=== PATIENT | female | born 1940 | race Caucasian/White ===

== ENCOUNTER → 2016-07-27 | Outpatient (CLI) | payer OTHER ==
[~2016-07-27] MED LIST: PERCOCET 5-3251 EACH PO
== END ==
LOC: RAD 10:16
DX: Z12.31 Encounter for screening mammogram for malignant neoplasm of breast (principal)

== ENCOUNTER → 2016-12-24 | Outpatient (CLI) | payer OTHER ==
[~2016-12-24] VITALS: Ht 147.3 cm; Wt 72.6 kg
[~2016-12-24] MED LIST changes: +ALIGN4 MG PO; +ASPIR 8181 M1 PO; +BIOTIN5000 MCG PO; +DILTIAZEM 24HR120 M2 PO; +IBUPROFEN 200200 M1 PO; +LIPITOR40 MG PO; +MULTIVITAMINS PO; +NEXIUM40 MG PO; +PROAIR HFA8.5 GM INH; +SYNTHROID75 MCG PO; +TYLENOL325 MG PO; +VITAMIN B-12500 MCG PO; +VITAMIN D-32000 UNIT PO; +ZANTAC 150MG T150 MG PO; +[UNRECOGNIZED DRUG - OTHER] TOP
--- NOTE | ~2016-12-24 | S ---
[facility] [place] [address] SURGICAL PATH RPT PROCEDURE Name: KEENAN HODGES Room #: REG KATERINA KrauseJoséGabriella.#: [id number] Admission: 12/24/16 Date of : 44 Discharge: Report #: [id number] Path Case #: [id number] PATHOLOGY REPORT COLLECTION DATE: 12/24/2016 RECEIVED DATE: 12/24/2016 SUBMITTING PHYS: Dr. Al Marshall OTHER PHYS: Dr Laly Rosas SPECIMEN(S) RECEIVED: A.Random bx of proximal colon B.Polyp at proximal ascending colon C.Random biopsy of distal colon and rectum * * * * * * * * * * * * FINAL DIAGNOSIS: A. Colon, proximal, biopsy: - Fragment of colonic mucosa with features suggestive of sessile serrated polyp. - Separate fragments of unremarkable colonic mucosa. - No evidence of microscopic colitis. B. Colon, proximal ascending, biopsy: - Tubular adenoma, fragments. - Negative for high grade dysplasia. C. Colon and rectum, biopsy: - Fragments of unremarkable colonic mucosa. - No evidence of microscopic colitis. PATHOLOGIST: Kalpesh Haley M.D. REPORT ELECTRONICALLY SIGNED BY: Kalpesh Haley M.D. DATE/TIME: 12/25/2016 11:51 * * * * * * * * * * * * GROSS PATHOLOGY: A. The specimen is received in formalin, labeled "Keenan Hodges and random biopsy of proximal colon", are multiple smith soft tissue 0.7 x 0.4 x 0.2 cm in aggregate, entirely submitted in A1. B. The specimen is received in formalin, labeled "Keenan Tracie and polyp at proximal ascending colon", are multiple smith soft tissue 0.5 x 0.5 x 0.1 cm in aggregate, entirely submitted in B1. C. The specimen is received in formalin, labeled "Keenan Tracie and random biopsy of distal colon and rectum", are multiple smtih soft tissue 0.6 x 0.6 x 0.1 cm in aggregate, entirely submitted in C1. (SWS; 12/25/2016) [address] [address] SURGICAL PATH RPT PROCEDURE Name: DAVID HODGESMARY Room #: REG KATERINA Retana#: [id number] Admission: 12/24/16 Date of : 44 Discharge: Report #: [id number] Path Case #: [id number] CLINICAL HISTORY: Diarrhea, rule out colitis INITIAL CPT CODE(S): A; 79034 B; 21093 C; 78280 Professional services performed by [facility] at [address], [place] [address] Technical services performed by [facility] at [address] [place] [address], [place] [address]. [facility] [address] [place] [id number] PHONE: [phone] DIRECTOR: Jai Seals M.D. * * * END OF REPORT * * *
--- NOTE | ~2016-12-24 | P ---
[facility] [place] [address] PROCEDURE REPORT Name: KEENAN GARRISON [id number] Admission: 12/24/16 Attend Phys: Al Marshall MD Discharge: Date of : 44 Report #: [id number] THIS REPORT FOR: //name// CC: DARYL Smith BRIEF HISTORY: The patient is a 76-year-old woman who has had recent problems with fecal soiling and change in stools. PREOPERATIVE DIAGNOSES: 1. Fecal incontinence. 2. Change in stools. POSTOPERATIVE DIAGNOSES: 1. Proximal colon polyp. 2. Few scattered colonic diverticula. MEDICATIONS: Deep sedation with propofol per anesthesia. SPECIMEN: 1. Random biopsies of proximal colon. 2. Polyp from proximal ascending colon. 3. Random biopsies of distal colon and rectum. ESTIMATED BLOOD LOSS: 3 mL. PROCEDURE: Colonoscopy to cecum and terminal ileum with biopsy. FINDINGS: Prior to propofol sedation, procedure of colonoscopy was discussed with the patient as well as potential risks, benefits and its complications. She indicates she understands and desires to proceed. DESCRIPTION OF PROCEDURE: With the patient in the left lateral decubitus position, digital examination was completed which revealed no abnormalities. Subsequently, the [employer] video colonoscope was introduced into the rectum, advanced under direct vision to the cecum. Done with minimal difficulty. The cecum was identified by the ileocecal valve and the appendiceal orifice. I was able to visualize the distal segment of terminal ileum, which was inspected and noted to be unremarkable. At that point, the scope was slowly withdrawn and careful circumferential views were obtained including retroflexion of the scope in the ascending colon. Upon slow withdrawal of the scope, the prep was excellent. The mucosa was within normal limits, normal vascular pattern, normal light reflex. As we withdrew the scope, the mucosa was normal, multiple random biopsies were obtained. However, in the very proximal colon, a flat 5-[address] [facility] [address] [place] [address] PROCEDURE REPORT Name: KEENAN GARRISON Room #: REG KATERINA M.Gabriella.#: [id number] Admission: 12/24/16 Attend Phys: Al Marshall MD Discharge: Date of : 44 Report #: [id number] polyp was seen and removed with a combination of cold snare polypectomy and biopsy forceps. Scope was further withdrawn and no additional neoplastic lesions were seen. Occasional colonic diverticula were seen scattered about the colon. Again, multiple random biopsies were obtained. Scope was withdrawn in the rectum. Upon retroflexion, no abnormalities were seen. Scope was withdrawn. The patient tolerated the procedure well. CONDITION OF THE PATIENT UPON DISCHARGE: Following the procedure, the patient drowsy, aroused, conversant and will be discharged home when fully ambulatory. INSTRUCTIONS TO THE PATIENT AND FAMILY AT THE TIME OF DISCHARGE: I did not see definite inflammatory changes. Multiple biopsies were obtained to evaluate microscopic colitis. We will also obtain a screen for celiac disease. The patient ____ been instructed on pelvic floor exercises Dr. Smith. If biopsies are nondiagnostic and screening for celiac disease is negative, consider a binding agent such as Colestid, which may be helpful. If she continues to have difficulty with continence, she is to follow up with Dr. Soheila Smith. As for the polyp, if it is an adenomatous, return in 5 years; if not, would consider colonoscopy depending on her clinical status in 10 years. Last colonoscopy was 5 years ago. Withdrawal time from the cecum was 18 minutes and 9 seconds. <ELECTRONICALLY SIGNED> By: Al Marshall MD 12/25/16 1108 [id number] 1300 Al Marshall MD /nt
== END | disposition home or self-care (01) ==
LOC: GI 08:50
DX: D12.2 Benign neoplasm of ascending colon (principal); K63.5 Polyp of colon; K57.30 Diverticulosis of large intestine without perforation or abscess without bleeding; J45.909 Unspecified asthma, uncomplicated; I10 Essential (primary) hypertension; K21.9 Gastro-esophageal reflux disease without esophagitis; Z87.891 Personal history of nicotine dependence; Z90.710 Acquired absence of both cervix and uterus; Z98.41 Cataract extraction status, right eye; Z98.42 Cataract extraction status, left eye; Z98.890 Other specified postprocedural states; Z86.2 Personal history of diseases of the blood and blood-forming organs and certain disorders involving the immune mechanism; Z98.61 Coronary angioplasty status; Z88.2 Allergy status to sulfonamides; Z88.8 Allergy status to other drugs, medicaments and biological substances; Z79.82 Long term (current) use of aspirin; Z79.899 Other long term (current) drug therapy
CPT/HCPCS: 62110; 62900

== ENCOUNTER 2018-04-14 05:20 | Day surgery (SDC) | payer OTHER ==
[~2018-04-14] VITALS: Ht 147.3 cm; Wt 59.0 kg
--- NOTE | ~2018-04-14 | O ---
[facility] [place] [address] OPERATIVE REPORT Name: KEENAN GARRISON Room #: 150-6 [facility] M.R.#: [id number] Admission: 04/14/18 Attend Phys: Yanet Sen, Discharge: Date of : 44 Report #: [id number] THIS REPORT FOR: //name// CC: Laly Sen DATE OF SERVICE: 04/14/2018 PREOPERATIVE DIAGNOSIS: Left carpal tunnel syndrome. POSTOPERATIVE DIAGNOSIS: Left carpal tunnel syndrome. PROCEDURE PERFORMED: Left open carpal tunnel release. SURGEON: Yanet Sen MD. ANESTHESIA: General mask anesthesia. ESTIMATED BLOOD LOSS: Minimal. TOURNIQUET TIME: 9 minutes. COMPLICATIONS: None. CONDITION: Stable. DISPOSITION: Recovery room. INDICATIONS: The patient is a 78-year-old female with the above-mentioned diagnosis. She elects for operative treatment. The risks, benefits, alternatives, complications were discussed include but are not limited to infection, damage to vessels or nerves, incomplete relief of her symptoms. Informed consent was obtained. The correct extremity was identified and labeled by myself after verbal confirmation of the patient as well as visual confirmation and signed informed consent. DESCRIPTION OF PROCEDURE: The patient was brought back to the operating room and placed on the operating table in supine position. She received preoperative antibiotics. Tourniquet was placed over padding of the patient's left upper extremity. The left upper extremity was sterilely prepped and draped in the usual fashion. A final timeout was taken to verify correct patient, operative procedure and operative site, all concurred. The entire procedure was done with the aid of 3.5 loupe magnification. The arm was elevated, exsanguinated and tourniquet inflated. Next, a 2 cm incision was made over the carpal tunnel in line with the ring and long finger web space. Dissection was carried down through the subcutaneous tissue with tenotomy scissors. In the mid portion of [address] [address] OPERATIVE REPORT Name: KEENAN GARRISON Room #: 150-6 [facility] M.R.#: [id number] Admission: 04/14/18 Attend Phys: Yanet Sen, Discharge: Date of : 44 Report #: [id number] the incision, a 15 blade was used to incise the very thick transverse carpal ligament. The very thick transverse carpal ligament was then transected proximally from the antebrachial fascia in the forearm all the way to the fat in the palm. The incision was ulnar to the course of median nerve to decrease postoperative scarring. The nerve was evaluated after complete release of the very thick transverse carpal ligament. There was a nice return of vascular pattern to the nerve. The wound was thoroughly irrigated. Skin was closed with 4-0 nylon suture. Wound was infiltrated with approximately 5 mL of 0.25% Marcaine. She was placed in a bulky dressing. All fingers were pink with brisk capillary refill at the conclusion of the case deflation of tourniquet. All sponge and needle counts were correct. The patient was transferred to postoperative recovery room in stable condition. By: 1307 1320 Yanet Sen MD /nt
[~2018-04-14 05:20] MED LIST changes: +FERREX 150150 MG PO; +SYNTHROID100 MC1 PO
[2018-04-14 10:02] LABS: HEMATOCRIT 44.4 % (37.0-47.0); HEMOGLOBIN 15.2 gm/dL (12.0-15.0); MCH 31.2 pg (26.0-34.0); MCHC 34.3 g/dL (28.0-37.0); MCV 91.1 fL (80.0-100.0); RBC 4.87 mil/uL (4.20-5.00); RDW 13.2 % (10.5-14.5); WBC 7.3 thou/uL (4.0-11.0)
[2018-04-14 10:23] VITALS: BP 103/75
[2018-04-14 12:45] VITALS: BP 103/75
== END 2018-04-14 14:08 | disposition home or self-care (01) ==
LOC: OR 05:20 → TBA 05:21 → OR 10:16
PROVIDERS: Orthopaedic Surgery Hand Surgery
DX: G56.02 Carpal tunnel syndrome, left upper limb (principal); I10 Essential (primary) hypertension; E78.5 Hyperlipidemia, unspecified; J45.909 Unspecified asthma, uncomplicated; D64.9 Anemia, unspecified; K21.9 Gastro-esophageal reflux disease without esophagitis; Z90.710 Acquired absence of both cervix and uterus; Z95.1 Presence of aortocoronary bypass graft; Z88.2 Allergy status to sulfonamides; Z88.8 Allergy status to other drugs, medicaments and biological substances; Z98.61 Coronary angioplasty status; Z87.891 Personal history of nicotine dependence; Z98.890 Other specified postprocedural states; Z98.41 Cataract extraction status, right eye; Z98.42 Cataract extraction status, left eye; Z79.82 Long term (current) use of aspirin
CPT/HCPCS: 50010; 50101; 50386; 56526; 57006; 57091; 62110; 62900; 70005

== ENCOUNTER → 2019-05-30 | Outpatient (CLI) | payer OTHER | LOC: SJCVCIMAG 11:01 | DX: I08.1 Rheumatic disorders of both mitral and tricuspid valves (principal); I25.10 Atherosclerotic heart disease of native coronary artery without angina pectoris; I10 Essential (primary) hypertension; E78.5 Hyperlipidemia, unspecified ==

== ENCOUNTER → 2020-02-29 | Outpatient (CLI) | payer OTHER | LOC: SJCVC 11:06 | PROVIDERS: ATTEND Internal Medicine Cardiovascular Disease | DX: R94.31 Abnormal electrocardiogram [ECG] [EKG] (principal); I25.10 Atherosclerotic heart disease of native coronary artery without angina pectoris; I10 Essential (primary) hypertension; E78.00 Pure hypercholesterolemia, unspecified; I44.1 Atrioventricular block, second degree; R55 Syncope and collapse; R42 Dizziness and giddiness; J44.9 Chronic obstructive pulmonary disease, unspecified; K21.9 Gastro-esophageal reflux disease without esophagitis; E03.9 Hypothyroidism, unspecified; Z79.82 Long term (current) use of aspirin; Z79.899 Other long term (current) drug therapy; Z87.891 Personal history of nicotine dependence; Z72.89 Other problems related to lifestyle; Z88.2 Allergy status to sulfonamides; Z88.8 Allergy status to other drugs, medicaments and biological substances ==

== ENCOUNTER → 2020-03-22 | Outpatient (CLI) | payer OTHER | LOC: SJCVC 10:52 | PROVIDERS: ATTEND Nurse Practitioner | DX: I11.9 Hypertensive heart disease without heart failure (principal); R94.31 Abnormal electrocardiogram [ECG] [EKG]; I25.10 Atherosclerotic heart disease of native coronary artery without angina pectoris; I44.1 Atrioventricular block, second degree; E78.00 Pure hypercholesterolemia, unspecified; R42 Dizziness and giddiness; I65.23 Occlusion and stenosis of bilateral carotid arteries; F15.20 Other stimulant dependence, uncomplicated; Z79.82 Long term (current) use of aspirin; Z87.891 Personal history of nicotine dependence; Z88.1 Allergy status to other antibiotic agents; Z88.8 Allergy status to other drugs, medicaments and biological substances ==

== ENCOUNTER → 2020-08-13 | Outpatient (CLI) | payer OTHER | LOC: BC 10:48 | PROVIDERS: ATTEND Internal Medicine | DX: Z12.31 Encounter for screening mammogram for malignant neoplasm of breast (principal) ==

== ENCOUNTER → 2020-12-02 | Outpatient (CLI) | payer OTHER | LOC: SJCVC 12:08 | PROVIDERS: ATTEND Internal Medicine Cardiovascular Disease | DX: I25.10 Atherosclerotic heart disease of native coronary artery without angina pectoris (principal); I65.23 Occlusion and stenosis of bilateral carotid arteries; I44.1 Atrioventricular block, second degree; I10 Essential (primary) hypertension; E78.00 Pure hypercholesterolemia, unspecified; I87.2 Venous insufficiency (chronic) (peripheral); J44.9 Chronic obstructive pulmonary disease, unspecified; R53.83 Other fatigue; Z79.82 Long term (current) use of aspirin; Z79.899 Other long term (current) drug therapy; Z87.891 Personal history of nicotine dependence; Z72.89 Other problems related to lifestyle; Z88.2 Allergy status to sulfonamides; Z88.8 Allergy status to other drugs, medicaments and biological substances ==

== ENCOUNTER → 2021-01-22 | Outpatient (CLI) | payer OTHER | LOC: SJCVCIMAG 13:15 | PROVIDERS: ATTEND Internal Medicine Cardiovascular Disease | DX: I25.10 Atherosclerotic heart disease of native coronary artery without angina pectoris (principal); R53.83 Other fatigue; Z95.5 Presence of coronary angioplasty implant and graft ==